=== PATIENT | male | born 1970 | race Caucasian/White ===

== ENCOUNTER 2022-06-30 08:50 | Outpatient (CLI) | payer OTHER, SELFPAY ==
[2022-06-30 19:53] LABS: Alanine Aminotransferase 56 U/L (6-50); Albumin Level 4.1 g/dL (3.5-5.1); Alkaline Phosphatase 86 U/L (38-126); Anion Gap 9 mmol/L (8-16); Aspartate Amino Transferase 31 U/L (17-59); Bilirubin,Total 0.7 mg/dL (0.2-1.3); Blood Urea Nitrogen 14 mg/dL (9-20); Carbon Dioxide 28 mmol/L (22-30); Chloride 104 mmol/L (98-107); Cholesterol 167 mg/dL (0-200); Estimated Glomerular Filt Rate > 60; Glucose 66 mg/dL (65-110); HDL Direct 32 mg/dL; Potassium 5.3 mmol/L (3.4-5.0); Sodium 141 mmol/L (137-145); Triglycerides 142 mg/dL (<150)
[2022-06-30 20:04] LABS: LDL Cholesterol Direct 98 mg/dL
[2022-06-30 20:24] LABS: Basophils Absolute Auto 0.1 K/mm3 (0.0-0.1); Basophils Percent Auto 0.8 % (0.2-1.2); Eosinophils Absolute Auto 0.2 K/mm3 (0-0.3); Eosinophils Percent Auto 2.3 % (0-4.4); Hematocrit 50.7 % (42.0-52.0); Hemoglobin 16.7 g/dL (14.0-18.0); Immature Granulocyte Absolute 0.11 K/mm3 (0.00-0.031); Immature Granulocyte Percent A 1.1 % (0-0.5); Lymphocytes Absolute Auto 2.87 K/mm3 (0.9-3.2); Lymphocytes Percent Auto 27.5 % (18.3-44.2); Mean Corpuscular HGB Conc 32.9 g/dl (32-36); Mean Corpuscular Hemoglobin 30.6 pg (26-34); Mean Platelet Volume 11.3 fl (7.4-10.4); Monocytes Absolute Auto 0.5 K/mm3 (0.1-0.6); Monocytes Percent Auto 5.2 % (2.6-8.5); Neutrophils Absolute Auto 6.6 K/mm3 (1.3-6.7); Neutrophils Percent Auto 63.1 % (45.5-73.1); Platelet Count Result 250 k/mm3 (150-375); Red Blood Count 5.45 M/mm3 (4.6-6.20); Red Cell Distribution Width 14.4 % (11.5-14.5); White Blood Count 10.4 K/mm3 (4.5-10.0)
[2022-06-30 20:25] LABS: Prostate Specific Antigen 0.6 ng/mL (< OR = 4.0)
== END 2022-06-30 08:51 | disposition home or self-care (01) ==
LOC: ANHGOSHLAB 08:52
PROVIDERS: PCP Internal Medicine; Visit Provider Clinical Nurse Specialist
DX: Z12.5 Encounter for screening for malignant neoplasm of prostate (principal); I10 Essential (primary) hypertension; E78.5 Hyperlipidemia, unspecified; E03.9 Hypothyroidism, unspecified
CPT/HCPCS: 36415; 80053; 80061; 84153; 84443; 85025; G0103

== ENCOUNTER → 2022-07-07 08:10 | Outpatient (CLI) | payer OTHER, SELFPAY ==
--- NOTE | ~2022-07-07 | US_ITS ---
Limited Abdominal Sonogram: Real-time sonographic imaging of the right upper quadrant was performed. Clinical History: Abnormal liver enzymes Findings: The liver appears mildly heterogeneous, with no evidence of mass lesion or bile duct dilat ation. Probable focal area of fatty sparing adjacent to the gallbladder. Main portal vein demonstrate s normal direction of flow. The gallbladder is well distended, and appears normal with no evidence of gallstone or wall thickening. The common bile duct measures 4 mm. The visualized pancreas, aorta, a nd IVC are unremarkable. Impression: Probable diffuse fatty infiltration of liver with suspected focal fatty sparing adjacent to the gallb ladder. Consider pre and postcontrast MR as further evaluation to exclude hypoechoic hepatic mass. Reviewed, dictated and finalized at [facility]. RENTAL CLERK Impression: Probable diffuse fatty infiltration of liver with suspected focal fatty sparing adjacent to the gallbladder. Consider pre and postcontrast MR as further evalu ation to exclude hypoechoic hepatic mass.
== END ==
PROVIDERS: PCP Internal Medicine; Visit Provider Nurse Practitioner
DX: R74.8 Abnormal levels of other serum enzymes (principal)
CPT/HCPCS: 76705

== ENCOUNTER → 2022-07-20 15:12 | Outpatient (CLI) | payer OTHER, SELFPAY ==
--- NOTE | ~2022-07-20 | MR_ITS ---
EXAMINATION: MR abdomen wo/w con DATE: 07/20/2022 16:11 INDICATION: Hepatic mass TECHNIQUE: Magnetic resonance imaging (MRI) of the abdomen was performed without and with 20 mL Multi eliane intravenous contrast. Sequences included coronal T2-weighted SS-FSE, coronal and axial FS 2D-F IESTA, axial STIR FSE, axial T2-weighted SS-FSE, axial T2-weighted FS SS-FSE, axial diffusion-weighte d SE, axial dual-echo T1-weighted FSPGR, and axial and coronal T1-weighted LAVA. Postcontrast axial T 1-weighted LAVA images were obtained in a time course. Postcontrast coronal T1-weighted LAVA images w ere obtained. COMPARISON: Ultrasound dated 07/07/2022 FINDINGS: Heart size is normal. No pericardial or pleural effusion. Small sliding-type hiatal hernia. Mild diff use hepatic steatosis with focal sparing along the gallbladder fossa. The location of the spring best appreciated on the post phase imaging corresponds to the size and location to the hypoechoic region on prior ultrasound. No other suspicious hepatic lesions identified. Gallbladder, spleen, pancreas an d bilateral adrenal glands are normal. Parapelvic cysts at both kidneys and couple parenchymal cysts the larger measuring 1.6 cm the right kidney. There are few diverticula along the descending colon wi thout adjacent inflammatory stranding to suggest diverticulitis. No bowel obstruction. No pathologica lly enlarged abdominal lymphadenopathy. Mild lumbar levocurvature with mild spondylosis. A few T1 hyp erintense fat saturating hemangioma is at at T7, T9 and L3. IMPRESSION: 1. Mild diffuse hepatic steatosis with focal sparing along the gallbladder fossa corresponding to the lesion of concern on prior ultrasound. Reviewed, dictated and finalized at location A. SION ORDER ANALYST IMPRESSION: 1. Mild diffuse hepatic steatosis with focal sparing along the gallbladder willie a corresponding to the lesion of concern on prior ultrasound.
== END ==
PROVIDERS: PCP Internal Medicine; Visit Provider Nurse Practitioner
DX: K76.0 Fatty (change of) liver, not elsewhere classified (principal)
CPT/HCPCS: 74183; A9577

== ENCOUNTER 2023-07-18 11:18 | Outpatient (CLI) | payer OTHER, SELFPAY ==
[2023-07-18 13:03] LABS: Basophils Absolute Auto 0.1 K/mm3 (0.0-0.1); Basophils Percent Auto 0.5 % (0.2-1.2); Eosinophils Absolute Auto 0.3 K/mm3 (0-0.3); Eosinophils Percent Auto 2.8 % (0-4.4); Hematocrit 50.8 % (42.0-52.0); Hemoglobin 16.1 g/dL (14.0-18.0); Immature Granulocyte Absolute 0.11 K/mm3 (0.00-0.031); Lymphocytes Absolute Auto 3.13 K/mm3 (0.9-3.2); Lymphocytes Percent Auto 27.7 % (18.3-44.2); Mean Corpuscular HGB Conc 31.7 g/dl (32-36); Mean Corpuscular Hemoglobin 29.3 pg (26-34); Mean Corpuscular Volume 92.5 fl (80-100); Mean Platelet Volume 11.1 fl (7.4-10.4); Monocytes Absolute Auto 0.6 K/mm3 (0.1-0.6); Monocytes Percent Auto 5.2 % (2.6-8.5); Neutrophils Absolute Auto 7.1 K/mm3 (1.3-6.7); Neutrophils Percent Auto 62.8 % (45.5-73.1); Platelet Count Result 239 k/mm3 (150-375); Red Blood Count 5.49 M/mm3 (4.6-6.20); Red Cell Distribution Width 13.6 % (11.5-14.5); White Blood Count 11.3 K/mm3 (4.5-10.0)
[2023-07-18 13:34] LABS: Alanine Aminotransferase 102 U/L (6-50); Albumin Level 4.3 g/dL (3.5-5.1); Alkaline Phosphatase 108 U/L (38-126); Anion Gap 4 mmol/L (8-16); Aspartate Amino Transferase 61 U/L (17-59); Bilirubin,Total 0.8 mg/dL (0.2-1.3); Blood Urea Nitrogen 15 mg/dL (9-20); Calcium 9.3 mg/dL (8.4-10.2); Carbon Dioxide 29 mmol/L (22-30); Chloride 107 mmol/L (98-107); Cholesterol 156 mg/dL (0-200); Estimated Glomerular Filt Rate > 60; Glucose 100 mg/dL (65-110); HDL Direct 30 mg/dL; Potassium 4.3 mmol/L (3.4-5.0); Sodium 140 mmol/L (137-145); Triglycerides 161 mg/dL (<150)
[2023-07-18 13:41] LABS: Free T4 Free Thyroxine 1.33 ng/mL (0.78-2.19); Vitamin D 25 Hydroxy 28.4 ng/mL
[2023-07-18 13:46] LABS: LDL Cholesterol Direct 102 mg/dL
[2023-07-18 14:03] LABS: Prostate Specific Antigen 0.6 ng/mL (< OR = 4.0)
[2023-07-20 06:37] LABS: Triiodothyronine T3 Free 3.3 pg/mL (2.3-4.2)
[2023-07-22 10:30] LABS: Testosterone Total 184 ng/dL (250-1100)
== END 2023-07-18 11:19 | disposition home or self-care (01) ==
LOC: ANHGOSHLAB 11:20
PROVIDERS: PCP Internal Medicine; Visit Provider Nurse Practitioner
DX: Z12.5 Encounter for screening for malignant neoplasm of prostate (principal); E78.5 Hyperlipidemia, unspecified; E03.9 Hypothyroidism, unspecified; I10 Essential (primary) hypertension
CPT/HCPCS: 36415; 80053; 80061; 82306; 84153; 84402; 84403; 84439; 84443; 84481; 85025; G0103

== ENCOUNTER 2023-08-19 11:10 | Outpatient (CLI) | payer OTHER, SELFPAY ==
[2023-08-19 11:49] LABS: Basophils Absolute Auto 0.1 K/mm3 (0.0-0.1); Basophils Percent Auto 0.5 % (0.2-1.2); Eosinophils Absolute Auto 0.3 K/mm3 (0-0.3); Eosinophils Percent Auto 2.6 % (0-4.4); Hematocrit 49.7 % (42.0-52.0); Hemoglobin 16.6 g/dL (14.0-18.0); Immature Granulocyte Percent A 0.9 % (0-0.5); Lymphocytes Absolute Auto 2.78 K/mm3 (0.9-3.2); Lymphocytes Percent Auto 25.5 % (18.3-44.2); Mean Corpuscular HGB Conc 33.4 g/dl (32-36); Mean Corpuscular Hemoglobin 30.1 pg (26-34); Mean Platelet Volume 10.5 fl (7.4-10.4); Monocytes Absolute Auto 0.5 K/mm3 (0.1-0.6); Monocytes Percent Auto 4.7 % (2.6-8.5); Neutrophils Absolute Auto 7.2 K/mm3 (1.3-6.7); Neutrophils Percent Auto 65.8 % (45.5-73.1); Platelet Count Result 246 k/mm3 (150-375); Red Blood Count 5.52 M/mm3 (4.6-6.20); Red Cell Distribution Width 13.6 % (11.5-14.5); White Blood Count 10.9 K/mm3 (4.5-10.0)
[2023-08-19 11:59] LABS: Alanine Aminotransferase 81 U/L (6-50); Albumin Level 4.6 g/dL (3.5-5.1); Alkaline Phosphatase 110 U/L (38-126); Aspartate Amino Transferase 38 U/L (17-59); Bilirubin,Total 0.9 mg/dL (0.2-1.3)
[2023-08-19 12:28] LABS: Free T4 Free Thyroxine 1.29 ng/mL (0.78-2.19)
[2023-08-23 13:49] LABS: FSH 9.4 mIU/mL (1.4-12.8); LH 5.2 mIU/mL (1.5-9.3)
[2023-08-24 14:42] LABS: Testosterone Free 35.5 pg/mL (35.0-155.0); Testosterone Total 204 ng/dL (250-1100)
[2023-08-26 01:17] LABS: Estradiol, Ultrasensitive 30 pg/mL (< OR = 29)
== END 2023-08-19 11:11 | disposition home or self-care (01) ==
LOC: ANHLAB 11:11
PROVIDERS: PCP Internal Medicine; Visit Provider Nurse Practitioner
DX: R74.01 Elevation of levels of liver transaminase levels (principal); E03.9 Hypothyroidism, unspecified; D72.829 Elevated white blood cell count, unspecified; N52.9 Male erectile dysfunction, unspecified
CPT/HCPCS: 36415; 80076; 82670; 83001; 83002; 84402; 84403; 84439; 84443; 84481; 85025

== ENCOUNTER 2023-12-07 10:59 | Outpatient (CLI) | payer OTHER, SELFPAY ==
[2023-12-07 12:49] LABS: Basophils Absolute Auto 0.1 K/mm3 (0.0-0.1); Basophils Percent Auto 0.6 % (0.2-1.2); Eosinophils Absolute Auto 0.2 K/mm3 (0-0.3); Eosinophils Percent Auto 1.9 % (0-4.4); Hematocrit 55.6 % (42.0-52.0); Hemoglobin 17.8 g/dL (14.0-18.0); Immature Granulocyte Percent A 0.8 % (0-0.5); Lymphocytes Absolute Auto 3.15 K/mm3 (0.9-3.2); Mean Corpuscular Hemoglobin 29.1 pg (26-34); Mean Corpuscular Volume 90.8 fl (80-100); Mean Platelet Volume 10.7 fl (7.4-10.4); Monocytes Absolute Auto 0.7 K/mm3 (0.1-0.6); Monocytes Percent Auto 5.3 % (2.6-8.5); Neutrophils Absolute Auto 8.4 K/mm3 (1.3-6.7); Neutrophils Percent Auto 66.4 % (45.5-73.1); Platelet Count Result 249 k/mm3 (150-375); Red Blood Count 6.12 M/mm3 (4.6-6.20); White Blood Count 12.6 K/mm3 (4.5-10.0)
[2023-12-07 13:33] LABS: Alanine Aminotransferase 38 U/L (6-50); Albumin Level 4.4 g/dL (3.5-5.1); Alkaline Phosphatase 76 U/L (38-126); Anion Gap 9 mmol/L (4-12); Aspartate Amino Transferase 49 U/L (17-59); Bilirubin,Total 0.9 mg/dL (0.2-1.3); Blood Urea Nitrogen 12 mg/dL (9-20); Calcium 9.1 mg/dL (8.4-10.2); Carbon Dioxide 28 mmol/L (22-30); Chloride 102 mmol/L (98-107); Estimated Glomerular Filt Rate > 60; Glucose 92 mg/dL (65-110); Potassium 4.5 mmol/L (3.4-5.0); Sodium 139 mmol/L (137-145)
[2023-12-07 14:07] LABS: Prostate Specific Antigen 1.2 ng/mL (< OR = 4.0)
[2023-12-12 09:09] LABS: Testosterone Free 271.5 pg/mL (35.0-155.0); Testosterone Total 854 ng/dL (250-1100)
== END 2023-12-07 11:00 | disposition home or self-care (01) ==
LOC: ANHGOSHLAB 11:01
PROVIDERS: PCP Internal Medicine; Visit Provider Internal Medicine
DX: Z12.5 Encounter for screening for malignant neoplasm of prostate (principal); Z79.890 Hormone replacement therapy; E29.1 Testicular hypofunction; E03.9 Hypothyroidism, unspecified; R74.01 Elevation of levels of liver transaminase levels
CPT/HCPCS: 36415; 80053; 84153; 84402; 84403; 84443; 85025; G0103

== ENCOUNTER 2024-02-17 06:02 | Emergency (ER) | payer OTHER, SELFPAY ==
[2024-02-17] VITALS (11 sets, daily range): BP systolic 144–173; BP diastolic 98–99; PULSE 76–100; RESP 16–20; TEMP 36.9; O2SAT 94–100
--- NOTE | ~2024-02-17 | XR_ITS ---
EXAMINATION: XR chest 2V DATE: 02/17/2024 09:35 INDICATION: Cough and shortness of breath. TECHNIQUE: Frontal and lateral views of the chest were obtained. COMPARISON: None. FINDINGS: There is no pneumonia, pleural effusion, or pneumothorax. The heart size is normal. There i s mild chronic anterior wedging of a midthoracic vertebral body. IMPRESSION: 1. No acute cardiopulmonary disease. Reviewed, dictated and finalized at location A.
--- NOTE | 2024-02-17 09:12 | ECG_ITS ---
Test Date: 2024-02-17 09:40:58 Measurements Intervals [place] Rate: 96 P: 39 ME: 157 QRS: 26 QRSD: 85 T: 40 QT: 329 QTc: 417 Interpretive Statements SINUS RHYTHM WITH OCCASIONAL VENTRICULAR PREMATURE COMPLEXES CONSIDER INFERIOR INFARCT, AGE INDETERMINATE BASELINE ARTIFACT- II, III ABNORMAL ECG No previous ECG available for comparison Electronically Signed On 02-17-2024 10:45:14 CDT by Charli Ortiz D.O.
--- NOTE | 2024-02-17 09:53 | ED.URI ---
HPI - URI/Sore Throat General Chief Complaint: Upper Respiratory Infection Stated Complaint: cough, sob Time Seen by Provider: 02/17/24 09:12 Source: patient Mode of arrival: ambulatory Limitations: no limitations History of Present Illness HPI Narrative: This is a 53-year-old male that presents to the emergency department for anxiety and shortness of breath. Reports he has been up since around 3 this morning feeling as though he can not catch his breath. Reports he feels like he can not get a good deep breath. He has been struggling with a cough over the last several weeks. Reports feeling anxious and closed in in his ER room currently. Denies fevers, chest pain, lower extremity edema. Related Data Allergies Allergy/AdvReac Type Severity Reaction Status Date / Time No Known Allergies Allergy Verified 12/13/23 14:26 Review of Systems Review of Systems: CONSTITUTIONAL: Denies fever ENT: Reports congestion CARDIOVASCULAR: Denies chest pain, or edema. RESPIRATORY: Reports cough and dyspnea. All systems reviewed & are unremarkable except as noted in HPI and below PMFSH Past Medical History Medical History (Updated 02/17/24 @ 13:43 by Betty Hutchison PA-C) HTN (hypertension) Hyperlipidemia Hypothyroidism Long-term current use of testosterone replacement therapy Male hypogonadism Steatohepatitis, non-alcoholic Family History Family History Father Patient's father is in good health Mother Hypoglycemia Social History Social History Smoking status: Never smoker Alcohol intake: current Alcohol use details: occasional Lack of Transportation: No Lack of Food: Never True Current Housing: I Have Housing Concerned About Future Housing: No Difficulty Paying Gas/Electric Bills: No Difficulty Paying for Meds: No Currently Unemployed: No Education: Bachelor's Degree Difficulty w/ Childcare or Family Care: No Exam Narrative: GENERAL: Well-appearing, well-nourished, and in no acute distress. HEAD: Normocephalic, atraumatic. EYES: EOMI. ENT: Nares clear, no rhinorrhea or epistaxis. Mucous membranes moist. Oropharynx without tonsillar hypertrophy exudate or other lesions. NECK: Supple. No JVD CHEST: Clear to auscultation. No respiratory distress. No wheezes rales or rhonchi HEART: Regular rate and rhythm. No murmur heard. Normal peripheral pulses. EXTREMITIES: Normal range of motion. No edema. SKIN: Warm, dry, no rash. NEURO: No focal deficits. Alert and oriented x3. PSYCH: Normal mood and affect Course Course Emergency Course: Patient updated on his workup and agrees with plan of care Vital Signs Vital signs: Vital Signs Temperature 98.4 F 02/17/24 06:06 Pulse Rate 97 02/17/24 06:06 Respiratory Rate 16 02/17/24 06:06 Blood Pressure 173/98 H 02/17/24 06:06 Pulse Oximetry 100 02/17/24 06:06 Oxygen Delivery Room Air 02/17/24 06:06 Temperature 98.4 F 02/17/24 06:06 Pulse Rate 97 02/17/24 11:45 Respiratory Rate 19 02/17/24 11:45 Blood Pressure 144/99 H 02/17/24 11:10 Pulse Oximetry 94 02/17/24 11:45 Oxygen Delivery Room Air 02/17/24 10:52 MDM - URI/Sore Throat MDM Narrative Medical decision making narrative: Patient presents to the ER for shortness of breath and anxiety. Reporting recent viral infection. Oxygen saturation is normal on room air. Lungs are clear on exam. CBC with leukocytosis to 12.6. This does appear to be a chronic problem for him. He is currently following with his PCP for this. Also shows mild hemoconcentration. Metabolic panel without concerning findings. BNP is not elevated. D-dimer is not elevated. Chest x-ray without acute cardiopulmonary abnormality. EKG without acute ST changes in baseline troponin is negative. Influenza, RSV and COVID screens are negative. Patient updated on his workup and agre
[2024-02-17 09:56] LABS: Basophils Percent Auto 0.3 % (0.2-1.2); Eosinophils Absolute Auto 0.1 K/mm3 (0-0.3); Eosinophils Percent Auto 0.4 % (0-4.4); Hematocrit 55.4 % (42.0-52.0); Hemoglobin 18.1 g/dL (14.0-18.0); Immature Granulocyte Absolute 0.14 K/mm3 (0.00-0.031); Immature Granulocyte Percent A 1.1 % (0-0.5); Lymphocytes Absolute Auto 2.38 K/mm3 (0.9-3.2); Lymphocytes Percent Auto 18.9 % (18.3-44.2); Mean Corpuscular HGB Conc 32.7 g/dl (32-36); Mean Corpuscular Hemoglobin 28.4 pg (26-34); Mean Corpuscular Volume 86.8 fl (80-100); Mean Platelet Volume 10.5 fl (7.4-10.4); Monocytes Absolute Auto 0.5 K/mm3 (0.1-0.6); Monocytes Percent Auto 4.2 % (2.6-8.5); Neutrophils Absolute Auto 9.5 K/mm3 (1.3-6.7); Neutrophils Percent Auto 75.1 % (45.5-73.1); Platelet Count Result 255 k/mm3 (150-375); Red Blood Count 6.38 M/mm3 (4.6-6.20); Red Cell Distribution Width 14.3 % (11.5-14.5); White Blood Count 12.6 K/mm3 (4.5-10.0)
[2024-02-17 10:06] LABS: Prothrombin Time 13.2 Seconds (11.1-14.7)
[2024-02-17 10:07] LABS: Anion Gap 11 mmol/L (4-12); Blood Urea Nitrogen 15 mg/dL (9-20); Calcium 8.9 mg/dL (8.4-10.2); Carbon Dioxide 26 mmol/L (22-30); Chloride 100 mmol/L (98-107); Estimated CRCL calculation 86 ml/min; Estimated Glomerular Filt Rate > 60; Glucose 111 mg/dL (65-110); Partial Thromboplastin Time 33.7 Seconds (22.3-36.8); Potassium 4.2 mmol/L (3.4-5.0); Sodium 137 mmol/L (137-145)
[2024-02-17 10:30] LABS: Influenza A QL RT-PCR Negative (Negative); Influenza B QL RT-PCR Negative (Negative); RSV RNA, RT-PCR Negative (Negative); SARS-CoV-2 RNA PCR Negative (Negative)
[2024-02-17 10:54] LABS: NT Pro B Type Natriuretic Pept < 20 pg/mL (19.9-100)
--- NOTE | 2024-02-17 11:09 | PC.NURSE ---
Patient able to ambulate to the restroom with steady gate
[2024-02-17 11:59] LABS: D Dimer < 0.22 ug/mL (<0.48)
[2024-02-17] MEDS: LORazepam (*CRX) 0.5 MG TABLET PO (13:29)
[2024-02-17 13:39] LABS: Troponin I < 0.012 ng/mL (0.000-0.034)
== END 2024-02-17 13:55 | disposition home or self-care (01) ==
PROVIDERS: Emergency Provider Physician Assistant; PCP Internal Medicine
DX: R06.02 Shortness of breath (principal); F41.9 Anxiety disorder, unspecified; D72.829 Elevated white blood cell count, unspecified; I10 Essential (primary) hypertension; E78.5 Hyperlipidemia, unspecified; E03.9 Hypothyroidism, unspecified; Z20.822 Contact with and (suspected) exposure to COVID-19
CPT/HCPCS: 36415; 71046; 80048; 83880; 84484; 85025; 85380; 85610; 85730; 87637; 93005; 99284; A9270

== ENCOUNTER 2024-07-27 11:32 | Outpatient (CLI) | payer OTHER, SELFPAY ==
[2024-07-27 18:37] LABS: Alanine Aminotransferase 52 U/L (6-50); Albumin Level 4.3 g/dL (3.5-5.1); Alkaline Phosphatase 85 U/L (38-126); Anion Gap 11 mmol/L (4-12); Aspartate Amino Transferase 50 U/L (17-59); Bilirubin,Total 1.1 mg/dL (0.2-1.3); Blood Urea Nitrogen 12 mg/dL (9-20); Calcium 9.1 mg/dL (8.4-10.2); Carbon Dioxide 28 mmol/L (22-30); Chloride 100 mmol/L (98-107); Cholesterol 125 mg/dL (0-200); Estimated Glomerular Filt Rate > 60; Glucose 74 mg/dL (65-110); HDL Direct 29 mg/dL; Potassium 4.4 mmol/L (3.4-5.0); Sodium 139 mmol/L (137-145); Triglycerides 162 mg/dL (<150)
[2024-07-27 18:43] LABS: Basophils Absolute Auto 0.1 K/mm3 (0.0-0.1); Basophils Percent Auto 0.4 % (0.2-1.2); Eosinophils Absolute Auto 0.2 K/mm3 (0-0.3); Eosinophils Percent Auto 2.1 % (0-4.4); Immature Granulocyte Percent A 0.9 % (0-0.5); Lymphocytes Absolute Auto 2.88 K/mm3 (0.9-3.2); Lymphocytes Percent Auto 25.7 % (18.3-44.2); Mean Corpuscular HGB Conc 32.8 g/dl (32-36); Mean Corpuscular Hemoglobin 29.5 pg (26-34); Mean Corpuscular Volume 90.1 fl (80-100); Mean Platelet Volume 10.6 fl (7.4-10.4); Monocytes Absolute Auto 0.7 K/mm3 (0.1-0.6); Neutrophils Absolute Auto 7.3 K/mm3 (1.3-6.7); Neutrophils Percent Auto 64.9 % (45.5-73.1); Platelet Count Result 222 k/mm3 (150-375); Red Blood Count 6.44 M/mm3 (4.6-6.20); Red Cell Distribution Width 15.3 % (11.5-14.5); White Blood Count 11.2 K/mm3 (4.5-10.0)
[2024-07-27 18:49] LABS: LDL Cholesterol Direct 65 mg/dL
== END 2024-07-27 11:33 | disposition home or self-care (01) ==
LOC: ANHGOSHLAB 11:34
PROVIDERS: PCP Internal Medicine; Visit Provider Internal Medicine
DX: K75.81 Nonalcoholic steatohepatitis (NASH) (principal); Z79.890 Hormone replacement therapy; E29.1 Testicular hypofunction; I10 Essential (primary) hypertension; E03.9 Hypothyroidism, unspecified
CPT/HCPCS: 36415; 80053; 80061; 82172; 84402; 84403; 84443; 85025